=== PATIENT | male | born 1985 | race Caucasian/White ===

== ENCOUNTER 2024-11-03 15:43 | Emergency (ER) | payer OTHER, SELFPAY ==
[2024-11-03 15:46] VITALS: BP 134/74; PULSE 63; RESP 16; TEMP 36; O2SAT 98; BMI 23.7
[2024-11-03] MEDS: ACETAMINOPHEN 500 MG TABLET 1000 MG PO (16:13)
[2024-11-03] MEDS: LIDOCAINE 1%-EPI 1:100,000 20 ML INFILTRATI (17:47)
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
== END 2024-11-03 17:42 | disposition home or self-care (01) ==
PROVIDERS: Emergency Provider Family Medicine
DX: S81.811A Laceration without foreign body, right lower leg, initial encounter (principal); V86.56XA Driver of dirt bike or motor/cross bike injured in nontraffic accident, initial encounter
CPT/HCPCS: 12002; 99283; 99284; A9270